=== PATIENT | male | born 1960 | race Caucasian/White ===

== ENCOUNTER 2018-03-03 20:02 | Emergency (ER) | payer BC ==
[~2018-03-03] VITALS: Ht 172.7 cm; Wt 81.7 kg
[~2018-03-03 20:02] MED LIST: ASCO500 PO; IBUP800; MSM500 MG PO; Multiple Vitam1 EAC1 PO; RANI150 PO; TOCO400 PO; TYLENOL COLD M PO; VITAMIN B122500 MC1 PO
[2018-03-03] MEDS ORDERED: Zithromax250 MG PO (21:18)
[2018-03-03] MEDS ORDERED: Cheratussin AC118 ML PO (21:26)
== END 2018-03-03 21:53 | disposition home or self-care (01) ==
LOC: ER 20:02
DX: R05 Cough (principal); K21.9 Gastro-esophageal reflux disease without esophagitis; Z79.899 Other long term (current) drug therapy
CPT/HCPCS: 71046; 93005; 93010; 99283

== ENCOUNTER 2020-09-09 11:51 | Day surgery (SDC) | payer BC ==
[~2020-09-09] VITALS: Ht 170.2 cm; Wt 172.4 kg
[~2020-09-09 11:51] MED LIST changes: +Cheratussin AC118 ML PO; +Zithromax250 MG PO
[2020-09-09] MEDS ORDERED: OMEP20ER PO (12:46)
[2020-09-09] MEDS ORDERED: CYCL10 PO (12:47)
[2020-09-09] MEDS ORDERED: TRAM50 PO (12:47)
--- NOTE | 2020-09-09 13:09 | NUR ---
09/09/20 1309 Jessica Fair INTERSCALENE NERVE BLOCK PERFORMED IN PRE-OP 1300: TIME OUT CONDUCTED 1301: SITE CHECK CONFIRMED, PROCEDURE START 1306 : PROCEDURE END 6L/MIN VIA NON-REBREATHER & PULSE OX ON THROUGHOUT PROCEDURE. PT TOLERATED WELL, NO ISSUES OR COMPLICATIONS. DR. ANDRADE ADMINISTERED 2MG VERSED IVP & 100MCG FENTANYL IVP PRIOR TO START OF BLOCK.
--- NOTE | 2020-09-09 13:57 | NUR ---
09/09/20 1357 Melina Alcala 1 MG EPI ADDED TO EACH OF THE FIRST 3 BAGS OF LR FOR IRRIGATION.
== END 2020-09-09 16:38 | disposition home or self-care (01) ==
LOC: ORSCSDS 11:51
PROVIDERS: Orthopaedic Surgery
PROC: 0PBB4ZZ Excision of Left Clavicle, Percutaneous Endoscopic Approach (ICD-10-PCS; principal; 2020-09-09 14:00)
PROC: 0LQ24ZZ Repair Left Shoulder Tendon, Percutaneous Endoscopic Approach (ICD-10-PCS; principal; 2020-09-09 14:00)
PROC: 0RNK4ZZ Release Left Shoulder Joint, Percutaneous Endoscopic Approach (ICD-10-PCS; principal; 2020-09-09 14:00)
PROC: 0L840ZZ Division of Left Upper Arm Tendon, Open Approach (ICD-10-PCS; principal; 2020-09-09 14:00)
PROC: 0RHK44Z Insertion of Internal Fixation Device into Left Shoulder Joint, Percutaneous Endoscopic Approach (ICD-10-PCS; principal; 2020-09-09 14:00)
PROC: 01N50ZZ Release Median Nerve, Open Approach (ICD-10-PCS; principal; 2020-09-09 14:00)
PROC: 0JBF0ZZ Excision of Left Upper Arm Subcutaneous Tissue and Fascia, Open Approach (ICD-10-PCS; principal; 2020-09-09 14:00)
PROC: 0LS44ZZ Reposition Left Upper Arm Tendon, Percutaneous Endoscopic Approach (ICD-10-PCS; principal; 2020-09-09 14:00)
DX: S46.002A Unspecified injury of muscle(s) and tendon(s) of the rotator cuff of left shoulder, initial encounter (principal); M75.22 Bicipital tendinitis, left shoulder; M75.42 Impingement syndrome of left shoulder; M19.012 Primary osteoarthritis, left shoulder; G56.02 Carpal tunnel syndrome, left upper limb; M77.12 Lateral epicondylitis, left elbow
CPT/HCPCS: C1713; J0171; J0690; J1100; J2250; J2405; J2704; J2795; J3010; J7120

== ENCOUNTER 2025-05-17 19:30 | Emergency (ER) | payer BC ==
[~2025-05-17] VITALS: Ht 165.1 cm; Wt 65.8 kg
[~2025-05-17 19:30] MED LIST changes: +CYCL10 PO; +OMEP20ER PO; +TRAM50 PO
[2025-05-17 20:09] VITALS: BP 158/80
[2025-05-17] MEDS ORDERED: Ketorolac Tromethamine 30mg Vial IM ONE (20:15)
[2025-05-17] MEDS ORDERED: AMOCLA875 PO (20:23)
== END 2025-05-17 21:19 | disposition home or self-care (01) ==
LOC: ER 19:30
DX: K04.7 Periapical abscess without sinus (principal); K21.9 Gastro-esophageal reflux disease without esophagitis; Z88.5 Allergy status to narcotic agent; Z79.899 Other long term (current) drug therapy; Z90.89 Acquired absence of other organs
CPT/HCPCS: 96372; 99282-25; A9270; J1885